=== PATIENT | female | born 1950 | race American Indian/Alaskan Native ===

== ENCOUNTER 2018-08-06 15:48 | Emergency (ER) | payer BC, OTHER ==
[2018-08-06 18:28] LABS: Absolute Lymphocytes (CBC) 1.7 K/uL (0.7-4.9); Absolute Monocytes 0.5 K/uL (0.1-1.3); Absolute Neutrophil 4.8 K/uL (1.8-8.0); Basophils % 0.7 % (0-1.3); Eosinophils % 1.9 % (0-4.4); Hematocrit 39.5 % (36.0-45.0); Lymphocytes % 23.6 % (15.3-44.8); MCV 89.3 fL (80-100); MPV 9.2 fL (7.6-11.3); Monocytes % 6.6 % (3.3-12.3); Protime INR 1.04; RBC Red Blood Cell Count 4.42 M/uL (3.86-4.86)
[2018-08-06 18:58] LABS: ALT/SGPT 20 U/L (12-78); AST/SGOT 19 U/L (15-37); Albumin 3.7 g/dL (3.4-5.0); Alkaline Phosphatase 97 U/L (45-117); BUN Blood Urea Nitrogen 18 mg/dL (7-18); Bicarbonate 27 mmol/L (21-32); Bilirubin Direct < 0.1 mg/dL (0-0.2); Bilirubin Total 0.3 mg/dL (0.2-1.0); Glucose Level 92 mg/dL (74-106); Magnesium 2.2 mg/dL (1.8-2.4); NT PRO-BNP 204 pg/mL (<125); Potassium 4.6 mmol/L (3.5-5.1); Protein, Total 7.9 g/dL (6.4-8.2); Sodium Level 141 mmol/L (136-145); Troponin (Emerg Dept Use Only) < 0.02 ng/mL (0.0-0.045)
--- NOTE | 2018-08-06 19:40 | EKG ---
Test Date: 2018-08-06 Test Time: 16:14:19 Ethnoarchaeologist: HB MEASUREMENT RESULTS: Intervals: Rate: 66 [place]: 184 QRSD: 66 QT: 384 QTc: 402 [place]: P: 3 [place]: 184 QRS: 40 T: 52 INTERPRETIVE STATEMENTS: Normal sinus rhythm Normal ECG Compared to ECG 03/26/2015 10:07:42 No significant changes Electronically Signed On 08-06-18 19:39:34 CDT by Rubens Chew
--- NOTE | 2018-08-06 19:53 | RAD REPORT ---
EXAM DESCRIPTION: US - Extremity Venous Uni Ltd - 08/06/2018 6:55 pm CLINICAL HISTORY: Leg pain and swelling Preliminary findings provided at the time of the study. COMPARISON: None. TECHNIQUE: Real-time sonographic evaluation of the left lower extremity deep venous system was perfo rmed. FINDINGS: Normal compressibility, flow augmentation, phasic flow and spontaneous flow are identified in the left lower extremity common femoral, superficial femoral, popliteal and posterior tibial vein s. No intraluminal filling defects seen. IMPRESSION: No DVT in the left lower extremity.
--- NOTE | 2018-08-06 20:49 | RAD REPORT ---
EXAM DESCRIPTION: RAD - Chest Single View - 08/06/2018 6:37 pm CLINICAL HISTORY: Chest pain, productive cough COMPARISON: None. TECHNIQUE: AP portable chest image was obtained 1818 hours . FINDINGS: No peripheral mass or consolidation seen. No significant failure or volume overload. Lung markings are prominent with baseline unknown. Heart and vasculature are normal. No measurable pleural effusion and no pneumothorax. No gross bony abnormality seen. No acute aortic findings suspected. IMPRESSION: No focal lung parenchymal process. Prominent interstitial markings. On a baseline study this could be fibrosis, interstitial edema or in terstitial infiltrate.
--- NOTE | 2018-08-06 20:55 | EDPHYS ---
Physician Documentation [facility] Name: Bennett Chamberlain Age: 68 yrs Sex: Female : 1950 Arrival Date: 08/06/2018 Time: 15:51 Bed 16 Private MD: Rolly Griffin R ED Physician Wanda Hardin HPI: 08/06 18:00 This 68 yrs old Other Female presents to ER via Wheelchair with complaints of Chest pm1 Pain, Leg Pain, Cough. 18:00 The patient presents with pain, that is acute. The complaints affect the posterior pm1 aspect of left knee. Context: resulted from the patient falling, the patient can fully bear weight, the patient is able to ambulate, Pain increased with flexion of left knee. Onset: The symptoms/episode began/occurred 1 week(s) ago. Modifying factors: The symptoms are alleviated by remaining still, the symptoms are aggravated by bending knee. Associated signs and symptoms: Pertinent negatives calf tenderness, fever, nausea, numbness, swelling, vomiting. Treatment prior to arrival includes: no previous treatment. Severity of symptoms: in the emergency department the symptoms are actually worse. The patient has been recently seen by a physician: Dr. Griffin earlier today. Patient presenting to the ER today with complaint of left knee pain, productive cough for 3 days, and left sided chest pain when coughing. Patient denies any fever. The patient is primarily concerned about her left knee pain for the past week. Patient had a mechanical fall 1 week ago. Patient was seen by PCP and was told that her left leg could be evaluated to rule out blood clots. Historical: - Allergies: 16:09 No Known Drug Allergies; hb - PMHx: 17:30 Hypothyroidism; Hyperlipidemia; aa5 - PSHx: 16:09 Hysterectomy; hb - Immunization history:: Adult Immunizations up to date. - Social history:: Smoking status: Patient/guardian denies using tobacco. - Ebola Screening: : No symptoms or risks identified at this time. ROS: 18:00 Constitutional: Negative for fever, chills, and weight loss, Eyes: Negative for injury, pm1 pain, redness, and discharge, ENT: Negative for injury, pain, and discharge, Neck: Negative for injury, pain, and swelling. 18:00 Abdomen/GI: Negative for abdominal pain, nausea, vomiting, diarrhea, and constipation, Back: Negative for injury and pain, : Negative for injury, bleeding, discharge, and swelling. 18:00 Skin: Negative for injury, rash, and discoloration, Neuro: Negative for headache, weakness, numbness, tingling, and seizure. 18:00 Cardiovascular: Positive for chest pain, with cough, Negative for edema, orthopnea, palpitations. 18:00 Respiratory: Positive for cough, Negative for shortness of breath, wheezing. 18:00 MS/extremity: Positive for pain, of the posterior aspect of left knee. Exam: 18:00 Constitutional: This is a well developed, well nourished patient who is awake, alert, pm1 and in no acute distress. Head/Face: Normocephalic, atraumatic. Eyes: Pupils equal round and reactive to light, extra-ocular motions intact. Lids and lashes normal. Conjunctiva and sclera are non-icteric and not injected. Cornea within normal limits. Periorbital areas with no swelling, redness, or edema. ENT: Nares patent. No nasal discharge, no septal abnormalities noted. Tympanic membranes are normal and external auditory canals are clear. Oropharynx with no redness, swelling, or masses, exudates, or evidence of obstruction, uvula midline. Mucous membranes moist. Neck: Trachea midline, no thyromegaly or masses palpated, and no cervical lymphadenopathy. Supple, full range of motion without nuchal rigidity, or vertebral point tenderness. No Meningismus. Chest/axilla: Normal chest wall appearance and motion. Nontender with no deformity. No lesions are appreciated. Cardiovascular: Regular rate and rhythm with a normal S1 and S2. No gallops, murmurs, or rubs. Normal PMI, no JVD. No pulse deficits. Respiratory: Lungs have equal breath sounds bilaterally, clear to auscultation and percussion. No rales, rhonchi or wheezes noted. No increased work of breathing, no retractions or nasal flaring. Abdomen/GI: Soft, non-tender, with normal bowel sounds. No distension or tympany. No guarding or rebound. No evidence of tenderness throughout. Back: No spinal tenderness. No costovertebral tenderness. Full range of motion. Skin: Warm, dry with normal turgor. Normal color with no rashes, no lesions, and no evidence of cellulitis. 18:00 Musculoskeletal/extremity: Extremities: ROM: full active range of motion, in the left knee, full passive range of motion, in the left knee, Pulses: are normal with no appreciated deficits, noted to be 2+ in the left dorsalis pedis artery, Calf tenderness, is absent, Edema, is not appreciated, Sensation intact. DVT Exam: No signs of deep vein thrombosis. 18:00 Neuro: Orientation: is normal, Motor: is normal, moves all fours, Sensation: is normal, no obvious gross deficits, Gait: is steady, at a normal pace, without difficulty. Vital Signs: 16:08 BP 157 / 80; Pulse 72; Resp 20; Temp 98; Pulse Ox 100% on R/A; Pain 8/10; hb 18:15 BP 169 / 66; Pulse 59; Resp 18 S; Pulse Ox 100% on R/A; aa5 19:43 BP 157 / 72; Pulse 60; Resp 18; Pulse Ox 100% on R/A; Pain 0/10; aa1 20:41 BP 160 / 73; Pulse 74; Resp 16; Pulse Ox 100% on R/A; aa1 MDM: 17:41 Patient medically screened. pm1 20:53 Data reviewed: vital signs. Data interpreted: Pulse oximetry: on room air is 100 %. pm1 Interpretation: normal. Counseling: I had a detailed discussion with the patient and/or guardian regarding: the historical points, exam findings, and any diagnostic results supporting the discharge/admit diagnosis, lab results, radiology results, the need for outpatient follow up, a orthopedic surgeon, to return to the emergency department if symptoms worsen or persist or if there are any questions or concerns that arise at home. 08/06 18:00 Order name: Basic Metabolic Panel; Complete Time: 19:25 pm1 08/06 18:00 Order name: CBC with Diff; Complete Time: 19:25 pm1 08/06 18:00 Order name: LFT's; Complete Time: :25 pm1 08/06 18:00 Order name: Magnesium; Complete Time: :25 pm1 08/06 18:00 Order name: NT PRO-BNP; Complete Time: 19:25 pm1 08/06 18:00 Order name: PT-INR; Complete Time: :25 pm1 08/06 18:00 Order name: Troponin (emerg Dept Use Only); Complete Time: 19:25 pm1 08/06 18:00 Order name: XRAY Chest (1 view); Complete Time: 20:52 pm1 08/06 18:00 Order name: EKG; Complete Time: 18:01 pm1 08/06 18:00 Order name: Cardiac monitoring; Complete Time: 18:09 pm1 08/06 18:00 Order name: EKG - Nurse/Tech; Complete Time: 18:09 pm1 08/06 18:00 Order name: IV Saline Lock; Complete Time: 18:52 pm1 08/06 18:00 Order name: Extremity Venous Uni Ltd US; Complete Time: 20:16 pm1 08/06 20:20 Order name: Knee Left 3 View XRAY pm1 08/06 18:00 Order name: Labs collected and sent; Complete Time: 18:52 pm1 08/06 18:00 Order name: O2 Per Protocol; Complete Time: 18:09 pm1 08/06 18:00 Order name: O2 Sat Monitoring; Complete Time: 18:09 pm1 Administered Medications: No medications were administered Disposition: 08/06/18 20:54 Discharged to Home. Impression: Pain in left knee, Chest pain, unspecified, Acute upper respiratory infection, unspecified. - Condition is Stable. - Discharge Instructions: Nonspecific Chest Pain, Viral Respiratory Infection, Knee Pain. - Medication Reconciliation Form, Thank You Letter form. - Follow up: Emergency Department; When: As needed; Reason: Worsening of condition. Follow up: Matthew Hinojosa MD; When: 2 - 3 days; Reason: Recheck today's complaints, Continuance of care, Re-evaluation by your physician. Follow up: Rolly Griffin MD; When: 2 - 3 days; Reason: Recheck today's complaints, Continuance of care, Re-evaluation by your physician. - Problem is new. - Symptoms have improved. Signatures: Dispatcher [employer] EDMS Simran Rodriges RN RN aa1 Tamara Tovar RN RN aa5 Dequan Bundy, ERMA GLASS BULB SILVERER pm1 Bety Lemus RN RN Corrections: (The following items were deleted from the chart) 21:14 20:54 08/06/2018 20:54 Discharged to Home. Impression: Pain in left knee; Chest pain, aa1 unspecified; Acute upper respiratory infection, unspecified. Condition is Stable. Forms are Medication Reconciliation Form, Thank You Letter, Antibiotic Education, Prescription Opioid Use. Follow up: Emergency Department; When: As needed; Reason: Worsening of condition. Follow up: Dr. Matthew Hinojosa; When: 2 - 3 days; Reason: Recheck today's complaints, Continuance of care, Re-evaluation by your physician. Follow up: Rolly Griffin; When: 2 - 3 days; Reason: Recheck today's complaints, Continuance of care, Re-evaluation by your physician. Problem is new. Symptoms have improved. pm1
--- NOTE | 2018-08-06 20:55 | ER ---
Nurse's Notes [facility] Name: Bennett Chamberlain Age: 68 yrs Sex: Female : 1950 Arrival Date: 08/06/2018 Time: 15:51 Bed 16 Private MD: Rolly Griffin R Diagnosis: Pain in left knee;Chest pain, unspecified;Acute upper respiratory infection, unspecified Presentation: 08/06 16:05 Presenting complaint: Patient states: Productive cough with yellow sputum x 3 days, hb left sided chest pain and pain with cough x 2 days Denies fever. Also c/o pain behind left knee x 1 week after mechanical from standing 1 week ago. Transition of care: patient was not received from another setting of care. Onset of symptoms was August 02, 2018. Risk Assessment: Do you want to hurt yourself or someone else? Patient reports no desire to harm self or others. Care prior to arrival: None. 16:05 Method Of Arrival: Wheelchair hb 16:05 Acuity: JANETTE 3 hb 17:35 Initial Sepsis Screen: Does the patient meet any 2 criteria? No. Patient's initial aa5 sepsis screen is negative. Does the patient have a suspected source of infection? No. Patient's initial sepsis screen is negative. Historical: - Allergies: 16:09 No Known Drug Allergies; hb - PMHx: 17:30 Hypothyroidism; Hyperlipidemia; aa5 - PSHx: 16:09 Hysterectomy; hb - Immunization history:: Adult Immunizations up to date. - Social history:: Smoking status: Patient/guardian denies using tobacco. - Ebola Screening: : No symptoms or risks identified at this time. Screenin:35 Abuse screen: Denies threats or abuse. Nutritional screening: No deficits noted. aa5 Tuberculosis screening: No symptoms or risk factors identified. Fall Risk None identified. Assessment: 17:35 General: Appears comfortable, Behavior is calm, cooperative. Pain: Complains of pain in aa5 posterior aspect of left knee and left-side of chest Pain does not radiate. Pain currently is 5 out of 10 on a pain scale. Pain began pt reports pain to posterior aspect of left knee started 1 week ago and chest pain started 2-3 days ago Is intermittent, Aggravated by weight bearing, walking and bending left knee. Neuro: Level of Consciousness is awake, alert, obeys commands, Oriented to person, place, time, situation. Cardiovascular: Heart tones S1 S2 present Rhythm is sinus rhythm. Respiratory: Reports cough that is productive, Airway is patent Respiratory effort is even, unlabored, Respiratory pattern is regular, symmetrical, Breath sounds are clear bilaterally. GI: Abdomen is round non-distended, Bowel sounds present X 4 quads. Abd is soft and non tender X 4 quads. : No signs and/or symptoms were reported regarding the genitourinary system. EENT: No signs and/or symptoms were reported regarding the EENT system. Derm: Skin is pink, warm \T\ dry. Musculoskeletal: Range of motion: intact in all extremities. 18:30 Reassessment: Patient and/or family updated on plan of care and expected duration. Pain aa5 level reassessed. Patient is alert, oriented x 3, equal unlabored respirations, skin warm/dry/pink. 19:43 Reassessment: Patient appears in no apparent distress at this time. Patient and/or aa1 family updated on plan of care and expected duration. Pain level reassessed. Patient is alert, oriented x 3, equal unlabored respirations, skin warm/dry/pink. Awaiting x-ray results Patient denies pain at this time. 20:20 Reassessment: Patient appears in no apparent distress at this time. Patient and/or aa1 family updated on plan of care and expected duration. Pain level reassessed. Patient is alert, oriented x 3, equal unlabored respirations, skin warm/dry/pink. IV dc'd per pt request. Provider to order knee x-ray at this time. 21:11 Reassessment: Patient appears in no apparent distress at this time. Patient is alert, aa1 oriented x 3, equal unlabored respirations, skin warm/dry/pink. Discussed d/c \T\ f/u instructions with pt \T\ daughter; denies questions or concerns at this time Patient denies pain at this time. Vital Signs: 16:08 BP 157 / 80; Pulse 72; Resp 20; Temp 98; Pulse Ox 100% on R/A; Pain 8/10; hb 18:15 BP 169 / 66; Pulse 59; Resp 18 S; Pulse Ox 100% on R/A; aa5 19:43 BP 157 / 72; Pulse 60; Resp 18; Pulse Ox 100% on R/A; Pain 0/10; aa1 20:41 BP 160 / 73; Pulse 74; Resp 16; Pulse Ox 100% on R/A; aa1 ED Course: 15:51 Patient arrived in ED. sb2 15:52 Rolly Griffin MD is Private Physician. sb2 16:07 Triage completed. hb 16:08 Arm band placed on right wrist. hb 17:35 No provider procedures requiring assistance completed. Patient maintains SpO2 aa5 saturation greater than 95% on room air. 17:37 Tamara Tovar RN is Primary Nurse. aa5 17:41 Dequan Bundy NP is PHCP. pm1 17:41 Wanda Hardin MD is Attending Physician. pm1 17:59 EKG done, by clean room technician. reviewed by Dequan Bundy NP. 3 18:19 Patient has correct armband on for positive identification. Placed in gown. Bed in low mh5 position. Call light in reach. Side rails up X 1. Adult w/ patient. Warm blanket given. Pulse ox on. NIBP on. 18:19 Initial lab(s) drawn, by sc, sent to lab. Inserted saline lock: 22 gauge in left mh5 antecubital area, using aseptic technique. Blood collected. 18:22 front desk monitor on. 5 18:22 Basic Metabolic Panel Sent. 5 18:22 CBC with Diff Sent. 5 18:22 LFT's Sent. 5 18:22 Magnesium Sent. 5 18:22 NT PRO-BNP Sent. 5 18:22 PT-INR Sent. 5 18:22 Troponin (emerg Dept Use Only) Sent. mh5 18:37 XRAY Chest (1 view) In Process Unspecified. EDMS 18:56 Extremity Venous Uni Ltd US In Process Unspecified. EDMS 19:00 Report given to CARLITOS Khalil. aa5 20:52 Knee Left 3 View XRAY In Process Unspecified. EDMS 20:53 Matthew Hinojosa MD is Referral Physician. pm1 20:54 Rolly Griffin MD is Referral Physician. pm1 21:11 IV discontinued, intact, bleeding controlled, No redness/swelling at site. Pressure aa1 dressing applied. Administered Medications: No medications were administered Outcome: 20:54 Discharge ordered by . pm1 21:11 Discharged to home via wheelchair, with family. aa1 21:11 Condition: good 21:11 Discharge instructions given to patient, family, Instructed on discharge instructions, follow up and referral plans. Demonstrated understanding of instructions, follow-up care. 21:14 Patient left the ED. aa1 Signatures: Dispatcher [employer] Simran Willson RN RN aa1 Tamara Tovar RN RN aa5 Dequan Bundy, ERMA WORKDAY MANAGER pm1 Bety Lemus RN RN hb Martinez, Maria 5 Ashlee Mak 2 July Krishnamurthy 3
--- NOTE | 2018-08-06 22:28 | RAD REPORT ---
EXAM DESCRIPTION: RAD - Knee Left 3 View - 08/06/2018 8:52 pm CLINICAL HISTORY: Knee pain COMPARISON: None. FINDINGS: No fracture, dislocation or periosteal reaction.No joint effusion seen. No joint space lizbet rowing. No soft tissue abnormality. IMPRESSION: Negative left knee. Clinical concerns for internal derangement or occult bony injury could be further assessed with MR im aging.
== END 2018-08-06 21:14 | disposition home or self-care (01) ==
LOC: ER 15:48
DX: J06.9 Acute upper respiratory infection, unspecified (principal); M25.562 Pain in left knee
CPT/HCPCS: 36415; 71045; 80048; 80076; 83735; 83880; 84484; 85025; 85610; 93005; 93971; 99285